=== PATIENT | male | born 1980 | race Two or more races ===

== ENCOUNTER 2020-12-02 14:09 | Emergency (ER) | payer MEDICAID ==
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
[2020-12-02] MEDS ORDERED: MVI, Adult with Vitamin K 10 ML, Thiamine 100 MG, Folic Acid 1 MG, Magnesium Sulfate 3 ... IV SCH ×5 (15:00)
== END 2020-12-02 21:53 ==
LOC: JP.ED 14:09
DX: F10.120 Alcohol abuse with intoxication, uncomplicated (principal); Y90.8 Blood alcohol level of 240 mg/100 ml or more; Z88.0 Allergy status to penicillin; Z72.0 Tobacco use; Z20.822 Contact with and (suspected) exposure to COVID-19
CPT/HCPCS: 36415; 80305-QW; 80307; 96365; 99283; 99284-25; J3411; J3475; J3490; J7030; U0002

== ENCOUNTER 2022-01-23 23:13 | Emergency (ER) | payer MEDICAID | END 2022-01-24 03:02 | disposition home or self-care (01) | LOC: JP.ED 23:13 | DX: F10.129 Alcohol abuse with intoxication, unspecified (principal); F12.90 Cannabis use, unspecified, uncomplicated; F13.90 Sedative, hypnotic, or anxiolytic use, unspecified, uncomplicated; Z88.0 Allergy status to penicillin; Z20.822 Contact with and (suspected) exposure to COVID-19; Y90.8 Blood alcohol level of 240 mg/100 ml or more | CPT/HCPCS: 36415; 80053; 80305-QW; 80307; 81001; 85025; 99283; 99284; U0002 ==

== ENCOUNTER 2022-01-24 17:57 | Emergency (ER) | payer MEDICAID | END 2022-01-25 00:27 | disposition home or self-care (01) | LOC: JP.ED 17:57 | DX: F10.129 Alcohol abuse with intoxication, unspecified (principal); F13.10 Sedative, hypnotic or anxiolytic abuse, uncomplicated; Z88.0 Allergy status to penicillin; Y90.8 Blood alcohol level of 240 mg/100 ml or more | CPT/HCPCS: 36415; 80053; 80305-QW; 80307; 85025; 99282; 99283 ==